=== PATIENT | female | born 1995 | race Caucasian/White ===

== ENCOUNTER 2018-08-09 15:37 | Emergency (ER) | payer OTHER ==
[2018-08-09 17:08] LABS: BILIRUBIN,URINE NEGATIVE (NEGATIVE); GLUCOSE, URINE (UA) NEGATIVE (NEGATIVE); KETONES,URINE (UA) NEGATIVE (NEGATIVE); LEUKOCYTE ESTERASE, URINE NEGATIVE (NEGATIVE); NITRITE,URINE NEGATIVE (NEGATIVE); OCCULT BLOOD,URINE NEGATIVE (NEGATIVE); PROTEIN,URINE NEGATIVE (NEGATIVE); UROBILINOGEN,URINE 0.2 (NORMAL) E.U./dL (NORMAL)
[2018-08-09 17:15] LABS: CLARITY,URINE CLEAR (CLEAR)
--- NOTE | 2018-08-09 17:40 | ED Physician Documentation ---
PD HPI ABD PAIN - Stated complaint Stated Complaint: 5 WKES PREG/ABD PX - Chief complaint Chief Complaint: Abd Pain - History obtained from History obtained from: Patient - History of Present Illness Timing - onset: Yesterday ( diagnosed with early a week ago today by 2 tests. with the first child due to decelerations. She has had intermittent right lower quadrant pain with soreness in between since yesterday, she is been nauseous and intermittently constipated.) Review of Systems Ten Systems: 10 systems reviewed and negative Constitutional: denies: Fever, Chills Cardiac: denies: Chest pain / pressure, Palpitations Respiratory: denies: Dyspnea, Cough PD PAST MEDICAL HISTORY - Present Medications Home Medications: Ambulatory Orders Medication Instructions Recorded Confirmed [id number]/FA/Omega3/Dha/Fish Oil 08/09/18 08/09/18 [ Gummies] - Allergies Allergies/Adverse Reactions: Allergies Allergy/AdvReac Type Severity Reaction Status Date / Time No Known Drug Allergies Allergy Verified 08/09/18 15:46 PD ED PE NORMAL - Vitals Vital signs reviewed: Yes - General General: Alert and oriented X 3, No acute distress - Neck Neck: Supple, no meningeal sign, No bony TTP - Cardiac Cardiac: RRR, No murmur - Respiratory Respiratory: No respiratory distress, Clear bilaterally - Abdomen Abdomen: Other (Minimal right lower quadrant tenderness without surgical signs) - Back Back: No CVA TTP, No spinal TTP - Derm Derm: Normal color, Warm and dry - Extremities Extremities: No edema, No calf tenderness / cord - Neuro Neuro: Alert and oriented X 3, Normal speech Results - Vitals Vitals: Vital Signs - 24 hr 08/09/18 08/09/18 15:44 19:19 Temperature 36.8 C Heart Rate 81 73 Respiratory 15 16 Rate Blood Pressure 110/64 109/61 O2 Saturation 98 100 Oxygen O2 Source Room air - Labs Labs: Laboratory Tests 08/09/18 08/09/18 08/09/18 16:55 17:45 17:45 WBC 9.2 RBC 4.77 Hgb 13.7 Hct 41.1 MCV 86.1 MCH 28.7 MCHC 33.3 RDW 15.2 H Plt Count 291 MPV 7.8 L Neut # (Auto) 6.2 Lymph # (Auto) 2.1 [place] # (Auto) 0.7 Eos # (Auto) 0.1 Baso # (Auto) 0.1 Absolute Nucleated RBC 0.00 Nucleated RBC % 0.0 Sodium 137 Potassium 3.5 Chloride 103 Carbon Dioxide 24 Anion Gap 10.0 BUN 14 Creatinine 0.7 Estimated GFR (MDRD) 104 Glucose 66 L Calcium 9.4 Total Bilirubin 0.6 AST 19 ALT 13 Alkaline Phosphatase 76 Total Protein 8.1 Albumin 4.4 Globulin 3.7 Albumin/Globulin Ratio 1.2 Lipase 48 HCG, Quant Urine Color YELLOW Urine Clarity CLEAR Urine pH 6.0 Ur Specific [place] 1.015 Urine Protein NEGATIVE Urine Glucose (UA) NEGATIVE Urine Ketones NEGATIVE Urine Occult Blood NEGATIVE Urine Nitrite NEGATIVE Urine Bilirubin NEGATIVE Urine Urobilinogen 0.2 (NORMAL) Ur Leukocyte Esterase NEGATIVE Ur Microscopic Review NOT INDICATED Urine Culture Comments NOT INDICATED Urine HCG, Qual POSITIVE 08/09/18 Unknown WBC RBC Hgb Hct MCV MCH MCHC RDW Plt Count MPV Neut # (Auto) Lymph # (Auto) [place] # (Auto) Eos # (Auto) Baso # (Auto) Absolute Nucleated RBC Nucleated RBC % Sodium Potassium Chloride Carbon Dioxide Anion Gap BUN Creatinine Estimated GFR (MDRD) Glucose Calcium Total Bilirubin AST ALT Alkaline Phosphatase Total Protein Albumin Globulin Albumin/Globulin Ratio Lipase HCG, Quant 3653.00 Urine Color Urine Clarity Urine pH Ur Specific [place] Urine Protein Urine Glucose (UA) Urine Ketones Urine Occult Blood Urine Nitrite Urine Bilirubin Urine Urobilinogen Ur Leukocyte Esterase Ur Microscopic Review Urine Culture Comments Urine HCG, Qual - Rads (name of study) Ob sono Radiology: Prelim report reviewed (4-week IUP without concerning findings for age and no evidence of ectopic) PD MEDICAL DECISION MAKING - ED course ED course: Note made that triage test was negative, She actually has copies of the labs from last Sunday and had a quantitative hCG of 350 7 days ago. However the laborer pipeline called me shortly thereafter and admitted that she had mis- keyed the test as negative and it was actually positive. Her beta-hCG was much higher today and sono was without evidence of acute pathology given her dates. She was given both ectopic and appendicitis precautions but this seems unlikely at this juncture. On reexamination prior to discharge she was nontender Departure - Departure Disposition: 01 Home, Self Care Clinical Impression: Abdominal pain, Condition: Good Record reviewed to determine appropriate education?: Yes Instructions: ED Abdominal Pain Appendx Poss Comments: Tylenol as needed for pain. Come back if pain is worse or more constant or if you develop other symptoms such as dizziness, passing out, fevers or bleeding. Follow-up with your central supply nurse next week, as discussed you should discuss a follow-up ultrasound in a week. Discharge Date/Time: 08/09/18 20:27
[2018-08-09 17:50] LABS: BASOPHILS # (AUTO) 0.1 10^3/uL (0.0-0.1); BASOPHILS % (AUTO) 0.9 %; EOSINOPHILS # (AUTO) 0.1 10^3/uL (0.0-0.7); EOSINOPHILS % (AUTO) 1.5 %; HGB - HEMOGLOBIN 13.7 g/dL (12.0-16.0); LYMPHOCYTES # (AUTO) 2.1 10^3/uL (1.5-3.5); MEAN CORPUSCULAR HEMOGLOBIN 28.7 pg (27.0-31.0); MEAN CORPUSCULAR HGB CONC 33.3 g/dL (32.0-36.0); MEAN CORPUSCULAR VOLUME 86.1 fL (81.0-99.0); MEAN PLATELET VOLUME 7.8 fL (7.9-10.8); MONOCYTES # (AUTO) 0.7 10^3/uL (0.0-1.0); MONOCYTES % (AUTO) 7.1 %; NEUTROPHILS # (AUTO) 6.2 10^3/uL (1.5-6.6); NEUTROPHILS % (AUTO) 67.5 %; PLT - PLATELET COUNT 291 10^3/uL (130-450); RED BLOOD COUNT 4.77 10^6/uL (4.20-5.40); RED CELL DISTRIBUTION WIDTH 15.2 % (12.0-15.0); WHITE BLOOD COUNT 9.2 x10^3/uL (4.8-10.8)
[2018-08-09 17:50] LABS: HCG UR QUAL POSITIVE
[2018-08-09 18:08] LABS: ALBUMIN 4.4 g/dL (3.2-5.5); ALBUMIN/GLOBULIN RATIO 1.2 (1.0-2.2); BILIRUBIN,TOTAL 0.6 mg/dL (0.2-1.0); CALCIUM 9.4 mg/dL (8.5-10.3); CREATININE 0.7 mg/dL (0.4-1.0); TOTAL PROTEIN 8.1 g/dL (6.7-8.2)
[2018-08-09 19:20] VITALS: BP 109/61
--- NOTE | 2018-08-09 20:00 | Ultrasound Report ---
Reason: Pelvic pain, Procedure Date: 08/09/2018 Accession Number: [id number] / [id number] Procedure: US - OB First Trimester CPT Code: FULL RESULT: EXAM: FIRST TRIMESTER OBSTETRIC ULTRASOUND (Less than 11 weeks) EXAM DATE: 08/09/2018 07:03 PM. CLINICAL HISTORY: Pelvic pain, . Right lower quadrant pain. LMP: 07/01/2018, EGA 5 weeks 3 days, RENETTA 04/07/2019. COMPARISONS: None. TECHNIQUE: Transabdominal and transvaginal ultrasound examination with static image documentation. CLINICAL DATES: EGA weeks/days with RENETTA based on LMP/prior ultrasound/other. ASSESSMENT: Gestational Sac: Probable single intrauterine gestational sac with a normal shape. Mean gestational sac diameter: 4.7 mm = 4 weeks 2 days. No embryo or yolk sac is seen. Amniotic fluid: Not accurately assessed at this gestational age. Early placenta: Not visible at this gestational age. Other: No perigestational fluid collection demonstrated. MATERNAL STRUCTURES: Uterus: Anteverted. Unremarkable. Cervix: Closed. Right Ovary/Adnexa: The ovary measures 4 x 2 x 1.8 cm. Unremarkable. Corpus luteum in the right ovary. Left Ovary/Adnexa: The ovary measures 2.8 x 1.6 x 1.8 cm. Unremarkable. Free Fluid: None. IMPRESSION: 1. Probable single intrauterine . Probable single intrauterine gestational sac with a EGA of 4 weeks 2 days. No embryo or yolk sac seen yet. In 1 week follow-up ultrasound could reevaluate. No evidence for an ectopic . An ectopic is not completely excluded. Correlate with beta hCGs. 2. No acute findings are seen. RADIA
== END 2018-08-09 20:27 | disposition home or self-care (01) ==
LOC: ED 15:37
DX: O99.89 Other specified diseases and conditions complicating pregnancy, childbirth and the puerperium (principal); R10.31 Right lower quadrant pain; Z3A.01 Less than 8 weeks gestation of pregnancy
CPT/HCPCS: 36415; 76801; 76817; 80053; 81001; 81003; 81025; 83690; 84702; 85025; 87086; 99283

== ENCOUNTER 2019-03-17 22:29 | Emergency (ER) | payer OTHER ==
[2019-03-17 22:36] VITALS: BP 147/70
[2019-03-17] MEDS ORDERED: ACETAMINOPHEN 325 MG TABLET PO STA (22:47)
--- NOTE | 2019-03-17 22:50 | ED Physician Documentation ---
History of Present Illness - Stated complaint Stated Complaint: CHEST PX/37 WKS - Chief complaint Chief Complaint: Cardiac - History obtained from History obtained from: Patient, Family - History of Present Illness Timing: How many hours ago (2) Pain level max: 6 Pain level now: 5 Improved by: nothing Worsened by: nothing - Additonal information Additional information: epigastric pain x 2 hours. states radiates to her back. no fever. no vomiting. some nausea. 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 Sees OB at [facility]. . 37 weeks EGA. no diarrhea or constipation. States lost her mucous plug yesterday. States is having mild contractions. no leakage of fluid. Review of Systems Constitutional: denies: Fever, Chills Throat: denies: Sore throat Cardiac: denies: Calf pain Respiratory: denies: Dyspnea, Cough, Hemoptysis, Wheezing GI: denies: Vomiting : denies: Dysuria, Frequency Skin: denies: Rash Neurologic: denies: Headache PD PAST MEDICAL HISTORY - Past Medical History Past Medical History: No Cardiovascular: None Respiratory: None Neuro: None Endocrine/Autoimmune: None GI: None TELECOMMUNICATIONS OFFICER: None : None HEENT: None Psych: None Musculoskeletal: None Derm: None - Past Surgical History Past Surgical History: Yes /TELECOMMUNICATIONS OFFICER: section - Present Medications Home Medications: Ambulatory Orders Medication Instructions Recorded Confirmed [id number]/FA/Omega3/Dha/Fish Oil 08/09/18 08/09/18 [ Gummies] - Allergies Allergies/Adverse Reactions: Allergies Allergy/AdvReac Type Severity Reaction Status Date / Time No Known Drug Allergies Allergy Verified 08/09/18 15:46 - Social History Does the pt smoke?: No Smoking Status: Never smoker Does the pt drink ETOH?: No Does the pt have substance abuse?: No - Immunizations Immunizations are current?: Yes - POLST Patient has POLST: No PD ED PE NORMAL - Vitals Vital signs reviewed: Yes - General General: Alert and oriented X 3, No acute distress, Well developed/nourished - HEENT HEENT: PERRL, Moist mucous membranes - Neck Neck: Supple, no meningeal sign - Cardiac Cardiac: RRR, Strong equal pulses - Respiratory Respiratory: No respiratory distress, Clear bilaterally - Abdomen Abdomen: Soft, Non distended, Other (mild TTP epigastric) - Back Back: No CVA TTP, No spinal TTP - Derm Derm: Warm and dry - Extremities Extremities: No edema, No calf tenderness / cord - Neuro Neuro: Alert and oriented X 3 - Psych Psych: Normal mood, Normal affect Results - Vitals Vitals: Vital Signs - 24 hr 03/17/19 22:30 Temperature 36.6 C Heart Rate 102 H Respiratory 18 Rate Blood Pressure 147/70 H O2 Saturation 98 Oxygen O2 Source Room air - EKG (time done) 2236 Rate: Rate (enter#) (92) Rhythm: NSR [place]: Normal Intervals: Normal AR QRS: Normal Ischemia: Normal ST segments - Labs Labs: Laboratory Tests 03/17/19 03/17/19 03/17/19 23:03 23:03 23:12 WBC 9.2 RBC 3.48 L Hgb 9.8 L Hct 29.9 L MCV 85.9 MCH 28.2 MCHC 32.8 RDW 13.2 Plt Count 233 MPV 9.5 Neut # (Auto) 6.8 H Lymph # (Auto) 1.5 [place] # (Auto) 0.8 Eos # (Auto) 0.1 Baso # (Auto) 0.0 Absolute Nucleated RBC 0.00 Nucleated RBC % 0.0 Sodium 138 Potassium 3.2 L Chloride 105 Carbon Dioxide 20 L Anion Gap 13.0 BUN 7 Creatinine 0.5 Estimated GFR (MDRD) 153 Glucose 88 Calcium 9.4 Total Bilirubin 0.6 AST 13 ALT < 10 L Alkaline Phosphatase 131 H Total Protein 6.6 L Albumin 3.0 L Globulin 3.6 Albumin/Globulin Ratio 0.8 L Lipase 31 Urine Color YELLOW Urine Clarity SL. CLOUDY Urine pH 6.5 Ur Specific [place] 1.015 Urine Protein NEGATIVE Urine Glucose (UA) NEGATIVE Urine Ketones 15 H Urine Occult Blood NEGATIVE Urine Nitrite NEGATIVE Urine Bilirubin NEGATIVE Urine Urobilinogen 0.2 (NORMAL) Ur Leukocyte Esterase TRACE H Urine RBC None Seen Urine WBC 0-3 Ur Squamous Epith Cells MOD Squamous H Amorphous Sediment Moderate Urine Bacteria Rare Ur Microscopic Review INDICATED Urine Culture Comments NOT INDICATED PD MEDICAL DECISION MAKING - ED course Complexity details: reviewed results, considered differential, d/w patient ED course: Called dye house helper at 2250 to come and have monitoring performed for possible labor in the ED. OB states they are unable to come to the ED for this. contected OB at 2300 D/w Dr. Lucio (OB) and accepts to OB in transfer, Patient will be transferred to OB for follow up on lab tests are monitoring. No evidence of ACS or PE. This document was made in part using voice recognition software. While efforts are made to proofread this document, sound alike and grammatical errors may occur. Departure - Departure Disposition: 01 Home, Self Care Clinical Impression: Abdominal pain Qualifiers: Abdominal location: epigastric Qualified Code(s): R10.13 - Epigastric pain Qualifiers: Weeks of gestation: 37 weeks Qualified Code(s): Z3A.37 - 37 weeks gestation of Condition: Stable Discharge Date/Time: 03/17/19 23:25
[2019-03-17] MEDS ORDERED: LIDOCAINE VISCOUS 2% 15 ML UDC MM STA (23:00)
[2019-03-17] MEDS ORDERED: MAG HYDROX/AL HYDROX/SIMETH 30 ML UDC PO STA (23:00)
[2019-03-17 23:11] LABS: BASOPHILS % (AUTO) 0.2 %; EOSINOPHILS # (AUTO) 0.1 10^3/uL (0.0-0.7); EOSINOPHILS % (AUTO) 0.8 %; HGB - HEMOGLOBIN 9.8 g/dL (12.0-16.0); LYMPHOCYTES # (AUTO) 1.5 10^3/uL (1.5-3.5); LYMPHOCYTES % (AUTO) 15.8 %; MEAN CORPUSCULAR HEMOGLOBIN 28.2 pg (27.0-31.0); MEAN CORPUSCULAR HGB CONC 32.8 g/dL (32.0-36.0); MEAN CORPUSCULAR VOLUME 85.9 fL (81.0-99.0); MEAN PLATELET VOLUME 9.5 fL (7.9-10.8); MONOCYTES # (AUTO) 0.8 10^3/uL (0.0-1.0); MONOCYTES % (AUTO) 9.1 %; NEUTROPHILS # (AUTO) 6.8 10^3/uL (1.5-6.6); NEUTROPHILS % (AUTO) 73.7 %; PLT - PLATELET COUNT 233 10^3/uL (130-450); RED BLOOD COUNT 3.48 10^6/uL (4.20-5.40); RED CELL DISTRIBUTION WIDTH 13.2 % (12.0-15.0); WHITE BLOOD COUNT 9.2 x10^3/uL (4.8-10.8)
[2019-03-17 23:20] LABS: BILIRUBIN,URINE NEGATIVE (NEGATIVE); GLUCOSE, URINE (UA) NEGATIVE (NEGATIVE); KETONES,URINE (UA) 15 mg/dL (NEGATIVE); LEUKOCYTE ESTERASE, URINE TRACE (NEGATIVE); NITRITE,URINE NEGATIVE (NEGATIVE); OCCULT BLOOD,URINE NEGATIVE (NEGATIVE); PH,URINE 6.5 PH (5.0-7.5); PROTEIN,URINE NEGATIVE (NEGATIVE); UROBILINOGEN,URINE 0.2 (NORMAL) E.U./dL (NORMAL)
[2019-03-17 23:24] LABS: ALBUMIN/GLOBULIN RATIO 0.8 (1.0-2.2); ALKALINE PHOSPHATASE 131 IU/L (42-121); ALT ALANINE AMINOTRANSFERASE < 10 IU/L (10-60); AST ASPARTATE AMINOTRANSFERASE 13 IU/L (10-42); BILIRUBIN,TOTAL 0.6 mg/dL (0.2-1.0); BUN - BLOOD UREA NITROGEN 7 mg/dL (6-20); CALCIUM 9.4 mg/dL (8.5-10.3); CARBON DIOXIDE - CO2 20 mmol/L (21-32); CHLORIDE 105 mmol/L (101-111); CREATININE 0.5 mg/dL (0.4-1.0); GFR - MDRD 153 (>89); GLUCOSE 88 mg/dL (70-100); LIPASE 31 U/L (22-51); SODIUM 138 mmol/L (135-145); TOTAL PROTEIN 6.6 g/dL (6.7-8.2)
[2019-03-17 23:32] LABS: CLARITY,URINE SL. CLOUDY (CLEAR)
[2019-03-17 23:37] LABS: AMORPHOUS SEDIMENT,UR Moderate /LPF; BACTERIA,URINE Rare /HPF (None Seen); RBC,URINE None Seen /HPF (0-5); SQUAMOUS EPITHELIAL CELL,UR MOD Squamous (<= Few)
== END 2019-03-17 23:25 | disposition home or self-care (01) ==
LOC: ED 22:29
DX: O99.89 Other specified diseases and conditions complicating pregnancy, childbirth and the puerperium (principal); R10.13 Epigastric pain; Z3A.37 37 weeks gestation of pregnancy
CPT/HCPCS: 36415; 80053; 81001; 83690; 85025; 93005; 99284; A9270; 81003; 87086

== ENCOUNTER 2019-03-17 23:19 | Outpatient (CLI) | payer OTHER ==
[2019-03-18 00:12] VITALS: BP 130/82
--- NOTE | 2019-03-18 01:06 | PROVIDER PROGRESS NOTE ---
- HPI Chief Complaint: GI symptoms Current : Current EDU 04/08/19 Gestation 37 Weeks and 0 Days 2 Para 1 Vital Signs Temperature 98.6 F 03/17/19 23:25 Heart Rate 93 03/17/19 23:25 Respiratory Rate 16 03/17/19 23:25 Blood Pressure 130/82 H 03/17/19 23:25 O2 Saturation 100 03/17/19 23:25 Temperature 98.6 F 03/17/19 23:25 Heart Rate 93 03/17/19 23:25 Respiratory Rate 16 03/17/19 23:25 Blood Pressure 130/82 H 03/17/19 23:25 O2 Saturation 100 03/17/19 23:25 Breanne s a 23 yo at 37w0d with a hx of prior cs here for evaluation of chest pain. She was seen in the ED earlier this evening and EKG was wnl and assessment for PE was negative. She was sent to OB triage for further assessment. Pain started about 4 hours prior to presentation. Rated 6/10 at rest, 8/10 with palpation. Nausea no vomiting. Only occ CTX. No VB or LOF. Endorses movement. Had supreme pizza for dinner. GI cocktail did not relieve pain. has been uncomplicated to date. - Exam GEN: NAD RESP: nl effort CV: RRR ABD: palpable mass in the epigastric area, substernal. Above uterine fundus. Pressure causes mass to recede with increase in report of pain. Pain radiates behind right breast to flank. No guarding. Uterine fundus firm and non-tender EXT: WWP minimal LE edema NEURO: A&O LFTs wnl - Procedures OB Procedure Performed: NST Diagnosis/Indication for NST: Other NST Procedure: NST Procedure Start Date 03/17/19 Start Time 23:23 Stop Time 00:01 Vibroacoustic Stimulation Used No Patient States Movement Yes EFM 115 md dev 15x15 accels no decels TOCO: rare Cat I tracing Service Date of procedure: 03/18/19 Findings: RUQ US pending. Initial assessment shows normal gallbladder, liver, pancreas. Awaiting final read. CAT I NST - Plan Plan: Ruled out acute cardiac event and PE RUQ US unrevealing Pain above uterus Reviewed signs and symptoms of preeclampsaia. At present, BPs are wnl and LFTS were normal TUMS/Zantac given for heart burn Warning signs reviewed A total of 60 min was spent in patient, with > 50% in face to face dianetic counselor.
[2019-03-18] MEDS: CALCIUM CARBONATE CHEW 500 MG TABLET PO ONE (01:11)
--- NOTE | 2019-03-18 01:21 | Ultrasound Report ---
Reason: epigrastic and abdominal pain, palpable mass Procedure Date: 03/18/2019 Accession Number: [id number] / [id number] Procedure: US - Abdomen Limited CPT Code: FULL RESULT: EXAM: ABDOMEN ULTRASOUND LIMITED, RUQ EXAM DATE: 03/18/2019 12:23 AM. CLINICAL HISTORY: Epigastric and abdominal pain, palpable mass. Patient is . COMPARISON: None. TECHNIQUE: Real-time scanning was performed with static images obtained. FINDINGS: Liver: Normal in size and echotexture. Liver measures 17.5 cm. Main portal vein flow: Hepatopetal. Gallbladder: Normal. No stones, wall thickening, or sonographic Govea's sign. Gallbladder wall measures 2.1 mm. Biliary System: CBD measures 3.5 mm. No intrahepatic or extrahepatic ductal dilatation. Other: Pancreas not well visualized due to shadowing from overlying bowel gas. Right kidney measures 10.1 cm in length. No right-sided hydronephrosis. Gravid uterus. IMPRESSION: 1. Pancreas not well visualized. Right upper quadrant ultrasound otherwise within normal limits. Unremarkable gallbladder and CBD. 2. Gravid uterus noted. Dedicated ultrasound can further assess if clinically indicated. RADIA
== END 2019-03-18 01:40 | disposition home or self-care (01) ==
LOC: WFO 23:19 → FBP 23:27 → WFO 03-18 01:40
PROVIDERS: ATTEND Obstetrics & Gynecology
DX: O99.89 Other specified diseases and conditions complicating pregnancy, childbirth and the puerperium (principal); R12 Heartburn; Z3A.37 37 weeks gestation of pregnancy
CPT/HCPCS: 59025; 76705; A9270; 99214

== ENCOUNTER 2019-07-25 18:00 | Emergency (ER) | payer OTHER ==
--- NOTE | 2019-07-25 18:44 | ED Physician Documentation ---
PD HPI ABD PAIN - Stated complaint Stated Complaint: LOWER ABD PAIN - 3MO POST - Chief complaint Chief Complaint: Abd Pain - History obtained from History obtained from: Patient (She is about 4 months , she had a C- section because she had had a prior . No other complications. For the last week she has had pelvic pain and right lower quadrant pain with watery vaginal discharge. No fevers or chills. No nausea. Declines pain medication on initial evaluation.) Review of Systems Constitutional: reports: Reviewed and negative Throat: reports: Reviewed and negative Cardiac: reports: Reviewed and negative Respiratory: reports: Reviewed and negative PD PAST MEDICAL HISTORY - Past Medical History Cardiovascular: None Respiratory: None Neuro: None Endocrine/Autoimmune: None GI: None FLOOR FINISHER: None : None HEENT: None Psych: None Musculoskeletal: None Derm: None - Past Surgical History Past Surgical History: Yes /FLOOR FINISHER: section - Present Medications Home Medications: Ambulatory Orders Medication Instructions Recorded Confirmed Pnv No.103/Folic/Om3s/Fish Oil 08/09/18 08/09/18 [ Gummies] - Allergies Allergies/Adverse Reactions: Allergies Allergy/AdvReac Type Severity Reaction Status Date / Time No Known Drug Allergies Allergy Verified 07/25/19 18:07 - Social History Does the pt smoke?: No Smoking Status: Never smoker Does the pt drink ETOH?: No Does the pt have substance abuse?: No - Immunizations Immunizations are current?: Yes - POLST Patient has POLST: No PD ED PE NORMAL - Vitals Vital signs reviewed: Yes - General General: Alert and oriented X 3, No acute distress - Respiratory Respiratory: No respiratory distress, Clear bilaterally - Abdomen Abdomen: Normal bowel sounds, Soft, Other (MILD rlq ttP AND PELVIC TTP) - Back Back: No CVA TTP, No spinal TTP - Derm Derm: Normal color, Warm and dry - Neuro Neuro: Alert and oriented X 3, Normal speech Results - Vitals Vitals: Vital Signs - 24 hr 07/25/19 18:07 Temperature 36.7 C Heart Rate 79 Respiratory 14 Rate Blood Pressure 131/82 H O2 Saturation 100 Oxygen O2 Source Room air - Labs Labs: Laboratory Tests 07/25/19 07/25/19 07/25/19 18:46 18:46 20:22 WBC 7.6 RBC 4.69 Hgb 13.9 Hct 42.0 MCV 89.6 MCH 29.6 MCHC 33.1 RDW 12.9 Plt Count 258 MPV 9.5 Neut # (Auto) 4.4 Lymph # (Auto) 2.4 [place] # (Auto) 0.7 Eos # (Auto) 0.1 Baso # (Auto) 0.0 Absolute Nucleated RBC 0.00 Nucleated RBC % 0.0 Sodium 139 Potassium 3.9 Chloride 103 Carbon Dioxide 26 Anion Gap 10.0 BUN 17 Creatinine 0.8 Estimated GFR (MDRD) 89 Glucose 89 Calcium 9.8 Total Bilirubin 0.6 AST 17 ALT 14 Alkaline Phosphatase 101 Total Protein 8.2 Albumin 4.7 Globulin 3.5 Albumin/Globulin Ratio 1.3 Lipase 43 Urine Color YELLOW Urine Clarity CLEAR Urine pH 6.5 Ur Specific [place] <=1.005 Urine Protein NEGATIVE Urine Glucose (UA) NEGATIVE Urine Ketones 15 H Urine Occult Blood NEGATIVE Urine Nitrite NEGATIVE Urine Bilirubin NEGATIVE Urine Urobilinogen 0.2 (NORMAL) Ur Leukocyte Esterase NEGATIVE Ur Microscopic Review NOT INDICATED Urine Culture Comments NOT INDICATED Urine HCG, Qual NEGATIVE PD MEDICAL DECISION MAKING - ED course ED course: This is a young woman with pelvic pain, 4 months after a . Work-up demonstrates a small left ovarian cyst, otherwise negative labs and negative test. Departure - Departure Disposition: 01 Home, Self Care Clinical Impression: Ovarian cyst Qualifiers: Laterality: left Qualified Code(s): N83.202 - Unspecified ovarian cyst, left side Condition: Good Record reviewed to determine appropriate education?: Yes Instructions: ED Pelvic Pain [facility] Comments: [place]. Return for new or worsening symptoms. If pain is bad you can take ibuprofen as needed. If that is insufficient please return for reevaluation.
[2019-07-25 18:50] LABS: BASOPHILS % (AUTO) 0.5 %; EOSINOPHILS # (AUTO) 0.1 10^3/uL (0.0-0.7); EOSINOPHILS % (AUTO) 0.9 %; HGB - HEMOGLOBIN 13.9 g/dL (12.0-16.0); LYMPHOCYTES # (AUTO) 2.4 10^3/uL (1.5-3.5); LYMPHOCYTES % (AUTO) 31.5 %; MEAN CORPUSCULAR HEMOGLOBIN 29.6 pg (27.0-31.0); MEAN CORPUSCULAR HGB CONC 33.1 g/dL (32.0-36.0); MEAN CORPUSCULAR VOLUME 89.6 fL (81.0-99.0); MEAN PLATELET VOLUME 9.5 fL (7.9-10.8); MONOCYTES # (AUTO) 0.7 10^3/uL (0.0-1.0); MONOCYTES % (AUTO) 9.1 %; NEUTROPHILS # (AUTO) 4.4 10^3/uL (1.5-6.6); NEUTROPHILS % (AUTO) 57.7 %; PLT - PLATELET COUNT 258 10^3/uL (130-450); RED BLOOD COUNT 4.69 10^6/uL (4.20-5.40); RED CELL DISTRIBUTION WIDTH 12.9 % (12.0-15.0); WHITE BLOOD COUNT 7.6 x10^3/uL (4.8-10.8)
[2019-07-25 19:04] LABS: ALBUMIN 4.7 g/dL (3.2-5.5); ALBUMIN/GLOBULIN RATIO 1.3 (1.0-2.2); BILIRUBIN,TOTAL 0.6 mg/dL (0.2-1.0); CALCIUM 9.8 mg/dL (8.5-10.3); CREATININE 0.8 mg/dL (0.4-1.0); TOTAL PROTEIN 8.2 g/dL (6.7-8.2)
--- NOTE | 2019-07-25 20:20 | Ultrasound Report ---
Reason: pelvic pain, R Procedure Date: 07/25/2019 Accession Number: [id number] / [id number] Procedure: US - Pelvic w/Transvag+Doppler Comp CPT Code: Final Report FULL RESULT: EXAM: PELVIC ULTRASOUND WITH DOPPLERS CLINICAL HISTORY: Pelvic pain, Right. COMPARISON: None. TECHNIQUE: Realtime transabdominal imaging performed to identify the uterus and adnexa and as an overview of other pelvic structures, followed by transvaginal imaging for better assessment of the endometrium and adnexa, with static image documentation. Color flow imaging and Doppler spectral analysis was performed to evaluate blood flow to the ovaries given pelvic pain and clinical concern for ovarian torsion. FINDINGS: Uterus: 9.3 x 4.7 x 5.6 cm, volume 126.4 cc. Anteverted position. Normal overall size and echotexture. Masses: None. Endometrium: 11 mm. Normal. Cervix: Unremarkable. Right Ovary: 4 x 2.5 x 2.2 cm, volume 11.4 cc. Normal echotexture. Arterial and venous blood flow are present. PSV 11.5 cm/sec. RI 0.6. Adnexa are unremarkable. Left Ovary: 3.8 x 2.7 x 2.8 cm, volume 15 cc. Normal echotexture. Left ovarian dominant follicle with a few peripheral thin septations measuring 2.2 x 2.5 x 2.2 cm. Arterial and venous blood flow are present. PSV 7 cm/sec. RI 0.6. Adnexa are unremarkable. Free Fluid: Small simple free fluid seen in the posterior cul-de-sac. IMPRESSION: 1. Small simple free fluid seen in the posterior cul-de-sac. Left ovarian dominant follicle measuring 2.5 cm. No evidence for ovarian torsion. 2. Arterial and venous blood flow are present to the ovaries bilaterally. RADIA
[2019-07-25 20:35] LABS: BILIRUBIN,URINE NEGATIVE (NEGATIVE); GLUCOSE, URINE (UA) NEGATIVE (NEGATIVE); KETONES,URINE (UA) 15 mg/dL (NEGATIVE); LEUKOCYTE ESTERASE, URINE NEGATIVE (NEGATIVE); NITRITE,URINE NEGATIVE (NEGATIVE); OCCULT BLOOD,URINE NEGATIVE (NEGATIVE); PH,URINE 6.5 PH (5.0-7.5); PROTEIN,URINE NEGATIVE (NEGATIVE); UROBILINOGEN,URINE 0.2 (NORMAL) E.U./dL (NORMAL)
[2019-07-25 20:47] LABS: CLARITY,URINE CLEAR (CLEAR); HCG UR QUAL NEGATIVE
[2019-07-25 21:07] VITALS: BP 125/73
== END 2019-07-25 21:07 | disposition home or self-care (01) ==
LOC: ED 18:00
DX: N83.202 Unspecified ovarian cyst, left side (principal)
CPT/HCPCS: 36415; 76830; 76856; 80053; 81001; 81003; 81025; 83690; 85025; 87086; 93975; 99283; 99284

== ENCOUNTER 2020-07-04 13:06 | Emergency (ER) | payer OTHER ==
--- NOTE | 2020-07-04 13:35 | ED Physician Documentation ---
PD HPI ABD PAIN - Stated complaint Stated Complaint: RIGHT ABD PAIN - Chief complaint Chief Complaint: Abd Pain - History obtained from History obtained from: Patient - Additional information Additional information: 24-year-old woman has an ovarian cyst diagnosed middle of May. Pain defervesced but never completely went away. She did have an a follow-up ultrasound showing no residual cyst. Today the pain got much worse again and is associated with nausea. No fevers. No discharge. Review of Systems Ten Systems: 10 systems reviewed and negative Constitutional: denies: Fever, Chills GI: reports: Nausea. denies: Vomiting, Constipation, Diarrhea : denies: Dysuria, Frequency PD PAST MEDICAL HISTORY - Past Medical History Cardiovascular: None Respiratory: None Neuro: None Endocrine/Autoimmune: None GI: None THERAPEUTIC CASE MANAGER: None : None HEENT: None Psych: None Musculoskeletal: None Derm: None - Past Surgical History Past Surgical History: Yes /THERAPEUTIC CASE MANAGER: section - Present Medications Home Medications: Ambulatory Orders Medication Instructions Recorded Confirmed Pnv No.103/Folic/Om3s/Fish Oil 08/09/18 08/09/18 [ Gummies] Metoclopramide [Reglan] 10 mg PO Q6H PRN #20 tablet 07/04/20 Pnv No.121/Iron/Folic Acid 1 each PO DAILY #90 tablet 07/04/20 [ Multivitamin Tablet] - Allergies Allergies/Adverse Reactions: Allergies Allergy/AdvReac Type Severity Reaction Status Date / Time No Known Drug Allergies Allergy Verified 07/04/20 13:13 - Social History Does the pt smoke?: No Smoking Status: Never smoker Does the pt drink ETOH?: No Does the pt have substance abuse?: No - Immunizations Immunizations are current?: Yes - POLST Patient has POLST: No PD ED PE NORMAL - Vitals Vital signs reviewed: Yes - General General: Alert and oriented X 3, No acute distress - Neck Neck: Supple, no meningeal sign, No bony TTP - Cardiac Cardiac: RRR, No murmur - Respiratory Respiratory: No respiratory distress, Clear bilaterally - Abdomen Abdomen: Normal bowel sounds, Soft, Other (Mild R pelvic TTP, no surg signs) - Back Back: No CVA TTP - Derm Derm: Normal color, Warm and dry - Neuro Neuro: Alert and oriented X 3, Normal speech Results - Vitals Vitals: Vital Signs - 24 hr 07/04/20 07/04/20 13:07 14:46 Temperature 36.3 C L Heart Rate 82 95 Respiratory 15 18 Rate Blood Pressure 128/74 121/74 O2 Saturation 99 98 Oxygen O2 Source Room air - Labs Labs: Laboratory Tests 07/04/20 07/04/20 07/04/20 13:30 13:40 13:40 WBC 7.1 RBC 4.38 Hgb 12.8 Hct 39.0 MCV 89.0 MCH 29.2 MCHC 32.8 RDW 13.1 Plt Count 268 MPV 9.7 Neut # (Auto) 4.6 Lymph # (Auto) 1.8 [place] # (Auto) 0.6 Eos # (Auto) 0.1 Baso # (Auto) 0.0 Absolute Nucleated RBC 0.00 Nucleated RBC % 0.0 Sodium 138 Potassium 3.9 Chloride 104 Carbon Dioxide 24 Anion Gap 10.0 BUN 13 Creatinine 0.7 Estimated GFR (MDRD) 103 Glucose 87 Calcium 9.4 Total Bilirubin 0.7 AST 14 ALT 13 Alkaline Phosphatase 67 Total Protein 7.7 Albumin 4.3 Globulin 3.4 Albumin/Globulin Ratio 1.3 Lipase 47 HCG, Quant 3216.00 Urine Color Urine Clarity Urine pH Ur Specific Moodus Urine Protein Urine Glucose (UA) Urine Ketones Urine Occult Blood Urine Nitrite Urine Bilirubin Urine Urobilinogen Ur Leukocyte Esterase Ur Microscopic Review Urine Culture Comments Urine HCG, Qual 07/04/20 13:45 WBC RBC Hgb Hct MCV MCH MCHC RDW Plt Count MPV Neut # (Auto) Lymph # (Auto) [place] # (Auto) Eos # (Auto) Baso # (Auto) Absolute Nucleated RBC Nucleated RBC % Sodium Potassium Chloride Carbon Dioxide Anion Gap BUN Creatinine Estimated GFR (MDRD) Glucose Calcium Total Bilirubin AST ALT Alkaline Phosphatase Total Protein Albumin Globulin Albumin/Globulin Ratio Lipase HCG, Quant Urine Color LIGHT YELLOW Urine Clarity CLEAR Urine pH 7.0 Ur Specific Moodus 1.015 Urine Protein NEGATIVE Urine Glucose (UA) NEGATIVE Urine Ketones NEGATIVE Urine Occult Blood NEGATIVE Urine Nitrite NEGATIVE Urine Bilirubin NEGATIVE Urine Urobilinogen 0.2 (NORMAL) Ur Leukocyte Esterase NEGATIVE Ur Microscopic Review NOT INDICATED Urine Culture Comments NOT INDICATED Urine HCG, Qual POSITIVE - Rads (name of study) OB Sono Radiology: EMP read contemporaneously PD MEDICAL DECISION MAKING - ED course ED course: 24-year-old G2 now G3 presents with lower abdominal pain in , fairly benign exam. White count is normal making appendicitis unlikely. She did not know she was , her urine test was positive and followed with a serum hCG and ultrasound which confirmed intrauterine . Departure - Departure Disposition: 01 Home, Self Care Clinical Impression: Abdominal pain Qualifiers: Abdominal location: right lower quadrant Qualified Code(s): R10.31 - Right lower quadrant pain Qualifiers: Weeks of gestation: less than 8 weeks Qualified Code(s): Z3A.01 - Less than 8 weeks gestation of Condition: Good Record reviewed to determine appropriate education?: Yes Instructions: ED Preg Established Normal Sxs Follow-Up: [facility] [Provider Group] Prescriptions: Pnv No.121/Iron/Folic Acid [ Multivitamin Tablet] 1 each PO DAILY #90 tablet Metoclopramide [Reglan] 10 mg PO Q6H PRN #20 tablet PRN Reason: nausea or headache Comments: Ultrasound demonstrates single live intrauterine at 5 weeks and 1 day, this corresponds to an estimated date of delivery of March 11, 2021. If symptoms worsen or change please return for reevaluation.
[2020-07-04 13:50] LABS: BASOPHILS % (AUTO) 0.6 %; EOSINOPHILS # (AUTO) 0.1 10^3/uL (0.0-0.7); HGB - HEMOGLOBIN 12.8 g/dL (12.0-16.0); LYMPHOCYTES # (AUTO) 1.8 10^3/uL (1.5-3.5); LYMPHOCYTES % (AUTO) 24.6 %; MEAN CORPUSCULAR HEMOGLOBIN 29.2 pg (27.0-31.0); MEAN CORPUSCULAR HGB CONC 32.8 g/dL (32.0-36.0); MEAN PLATELET VOLUME 9.7 fL (7.9-10.8); MONOCYTES # (AUTO) 0.6 10^3/uL (0.0-1.0); MONOCYTES % (AUTO) 8.5 %; NEUTROPHILS # (AUTO) 4.6 10^3/uL (1.5-6.6); NEUTROPHILS % (AUTO) 64.9 %; PLT - PLATELET COUNT 268 10^3/uL (130-450); RED BLOOD COUNT 4.38 10^6/uL (4.20-5.40); RED CELL DISTRIBUTION WIDTH 13.1 % (12.0-15.0); WHITE BLOOD COUNT 7.1 x10^3/uL (4.8-10.8)
[2020-07-04 14:00] LABS: BILIRUBIN,URINE NEGATIVE (NEGATIVE); GLUCOSE, URINE (UA) NEGATIVE (NEGATIVE); KETONES,URINE (UA) NEGATIVE (NEGATIVE); LEUKOCYTE ESTERASE, URINE NEGATIVE (NEGATIVE); NITRITE,URINE NEGATIVE (NEGATIVE); OCCULT BLOOD,URINE NEGATIVE (NEGATIVE); PROTEIN,URINE NEGATIVE (NEGATIVE); UROBILINOGEN,URINE 0.2 (NORMAL) E.U./dL (NORMAL)
[2020-07-04 14:02] LABS: CLARITY,URINE CLEAR (CLEAR); HCG UR QUAL POSITIVE
[2020-07-04 14:04] LABS: ALBUMIN 4.3 g/dL (3.2-5.5); ALBUMIN/GLOBULIN RATIO 1.3 (1.0-2.2); BILIRUBIN,TOTAL 0.7 mg/dL (0.2-1.0); CALCIUM 9.4 mg/dL (8.5-10.3); CREATININE 0.7 mg/dL (0.4-1.0); TOTAL PROTEIN 7.7 g/dL (6.7-8.2)
[2020-07-04] MEDS ORDERED: HYDROmorphone 1 MG/ML CARPUJECT IVP STA (14:15)
[2020-07-04] MEDS ORDERED: METOCLOPRAMIDE 10 MG/2 ML VIAL IVP STA (14:15)
--- NOTE | 2020-07-04 15:09 | Ultrasound Report ---
Endovaginal imaging was performed with OB ultrasound, reported separately. Reviewed by: Andrea Herrera MD on 07/04/2020 2:08 PM [place] Approved by: Andrea Herrera MD on 07/04/2020 2:08 PM [facility] Station ID: [id number]
--- NOTE | 2020-07-04 15:09 | Ultrasound Report ---
PROCEDURE: OB First Trimester INDICATIONS: R pelvic pain, preg OUTSIDE/PRIOR DATING DATA: Last menstrual period (LMP): 1016. LMP-based estimated date of delivery (RENETTA): 03.11.21. TECHNIQUE: Real-time scanning was performed of the fetus and maternal pelvic organs, with image documentation. COMPARISON: None FINDINGS: Embryo: There is an intrauterine anechoic sac consistent with an intrauterine gestational sac measur ing 4 mm diameter, corresponding to a 5 week 1 day gestation. Measurement variability in dating: +/- 4 weeks by LMP, +/- 7 days by mean sac diameter (use before 6 weeks gestation if crown-rump length not able to be measured), +/- 5 days by crown-rump length (6-12 weeks gestation). Maternal organs: Ovaries within normal limits. Limited images through the kidneys demonstrate no hy dronephrosis. Small amount of free fluid within the pelvis. IMPRESSION: 1. Findings consistent with an early intrauterine gestation. Routine clinical and sonographic follow- up recommended to document viability. 2. Small amount of free fluid within the pelvis. Reviewed by: Andrea Herrera MD on 07/04/2020 2:08 PM [facility] Approved by: Andrea Herrera MD on 07/04/2020 2:08 PM [facility] Station ID: [id number]
[2020-07-04 15:34] VITALS: BP 112/67
== END 2020-07-04 15:33 | disposition home or self-care (01) ==
LOC: ED 13:06
DX: O26.899 Other specified pregnancy related conditions, unspecified trimester (principal); R10.2 Pelvic and perineal pain; Z3A.01 Less than 8 weeks gestation of pregnancy
CPT/HCPCS: 36415; 76801; 76817; 80053; 81003; 81025; 83690; 84702; 85025; 96374; 99284; 99285; J1170; J2765; 81001; 87086

== ENCOUNTER 2020-10-23 15:20 | Emergency (ER) | payer OTHER ==
--- NOTE | 2020-10-23 15:29 | ED Physician Documentation ---
PD HPI FEVER - Stated complaint Stated Complaint: POSS C+ - History obtained from History obtained from: Patient - Additional information Additional information: Her is active duty in the [employer] and was diagnosed with Covid today. She has mild nausea and a headache. She has 20-week without contractions or fluid loss. Review of Systems Constitutional: denies: Fever, Chills Nose: denies: Rhinorrhea / runny nose Cardiac: denies: Chest pain / pressure Respiratory: denies: Dyspnea, Cough PD PAST MEDICAL HISTORY - Past Medical History Cardiovascular: None Respiratory: None Neuro: None Endocrine/Autoimmune: None GI: None FOREST PATHOLOGY TEACHER: None : None HEENT: None Psych: None Musculoskeletal: None Derm: None - Past Surgical History Past Surgical History: Yes /FOREST PATHOLOGY TEACHER: section - Present Medications Home Medications: Ambulatory Orders Medication Instructions Recorded Confirmed Pnv No.103/Folic/Om3s/Fish Oil 08/09/18 08/09/18 [ Gummies] Metoclopramide [Reglan] 10 mg PO Q6H PRN #20 tablet 07/04/20 Pnv No.121/Iron/Folic Acid 1 each PO DAILY #90 tablet 07/04/20 [ Multivitamin Tablet] - Allergies Allergies/Adverse Reactions: Allergies Allergy/AdvReac Type Severity Reaction Status Date / Time No Known Drug Allergies Allergy Verified 07/04/20 13:13 - Social History Does the pt smoke?: No Smoking Status: Never smoker Does the pt drink ETOH?: No Does the pt have substance abuse?: No - Immunizations Immunizations are current?: Yes - POLST Patient has POLST: No PD ED PE NORMAL - Vitals Vital signs reviewed: Yes - General General: Alert and oriented X 3, No acute distress - Neck Neck: Supple, no meningeal sign - Derm Derm: No rash - Psych Psych: Normal mood, Normal affect Results - Vitals Vitals: Oxygen O2 Source Room air Departure - Departure Disposition: 01 Home, Self Care Clinical Impression: Exposure to COVID-19 virus Condition: Good Record reviewed to determine appropriate education?: Yes Instructions: ED Viral Syndrome Comments: You must strictly home quarantine for now. Isolation and precautions can be discontinued 10 days after symptom onset* and after resolution of fever for at least 24 hours, without the use of fever-reducing medications, and with improvement of other symptoms. You have a Covid test pending. You need to self quarantine until the result is done and negative. Do not leave your house. Do not get near anybody. The results should be done in 48 to 72 hours. We will call with a positive result, the fastest way to get a negative result for confirmation though is to go to the hospital website at [email or web address], click on the my [facility] tab and sign up for the patient portal. If any friends or family get sick and would like to have a Covid test done, but do not have signs or symptoms that would necessitate being hospitalized, we encourage testing through our coronavirus swabbing station, call [phone] to schedule an appointment. Forms: Activity restrictions
[2020-10-23 15:52] VITALS: BP 117/71
== END 2020-10-23 15:50 | disposition home or self-care (01) ==
LOC: ED 15:20
DX: O26.892 Other specified pregnancy related conditions, second trimester (principal); R51.9 Headache, unspecified; R11.0 Nausea; Z20.822 Contact with and (suspected) exposure to COVID-19; Z3A.20 20 weeks gestation of pregnancy
CPT/HCPCS: 99281; 99283

== ENCOUNTER 2020-12-11 12:05 | Outpatient (CLI) | payer OTHER ==
[2020-12-11 13:00] LABS: BILIRUBIN,URINE NEGATIVE (NEGATIVE); GLUCOSE, URINE (UA) NEGATIVE (NEGATIVE); KETONES,URINE (UA) NEGATIVE (NEGATIVE); LEUKOCYTE ESTERASE, URINE NEGATIVE (NEGATIVE); NITRITE,URINE NEGATIVE (NEGATIVE); OCCULT BLOOD,URINE NEGATIVE (NEGATIVE); PROTEIN,URINE NEGATIVE (NEGATIVE); UROBILINOGEN,URINE 0.2 (NORMAL) E.U./dL (NORMAL)
[2020-12-11 13:01] LABS: CLARITY,URINE CLEAR (CLEAR)
[2020-12-11 13:09] LABS: BACTERIA,URINE None Seen /HPF (None Seen); RBC,URINE 0-5 /HPF (0-5); SQUAMOUS EPITHELIAL CELL,UR FEW Squamous (<= Few); WBC,URINE 0-3 /HPF (0-5)
--- NOTE | 2020-12-11 15:03 | Ultrasound Report ---
PROCEDURE: OB Limited INDICATIONS: Rule out abruption OUTSIDE/PRIOR DATING DATA: Last menstrual period (LMP): 06/04/2020. LMP-based estimated date of delivery (RENETTA): 03/11/2021. First dating scan (date and location): 07/04/2020,[facility], at which time there was simply a gestational s ac. It is noted that the physician states the RENETTA is 03/10/2021. However, by a report from [facility] , estimated delivery date is 03/07/2021 TECHNIQUE: Real-time scanning was performed of the fetus, with image documentation. Endovaginal scanning: Not performed COMPARISON: None. FINDINGS: A single living intrauterine gestation is present. Presentation: Breech Placenta: Placental position is anterior, without previa. Amniotic fluid index: 15.1 cm, within normal limits for gestational age. Largest pocket is 5.6 cm. heart rate: 128 beats per minutes. Maternal cervical canal: 4.8 cm long; normal length is 2.5 cm or more. Estimated gestational age from initial scan: 27 weeks 2 days (if the estimated delivery date is 2020). IMPRESSION: 1. Living intrauterine at the beginning of the third trimester 2. Unremarkable placenta with no evidence of abruption or previa. Reviewed by: Anastacio Murray MD on 12/11/2020 3:02 PM PDT Approved by: Anastacio Murray MD on 12/11/2020 3:02 PM PDT Station ID: [id number]
[2020-12-11 17:29] LABS: BACTERIAL VAGINOSIS DNA NEGATIVE (NEGATIVE); CANDIDA GLABRATA DNA NEGATIVE (NEGATIVE); CANDIDA GROUP DNA NEGATIVE (NEGATIVE); CANDIDA KRUSEI DNA NEGATIVE (NEGATIVE); TRICHOMONAS VAGINALIS DNA NEGATIVE (NEGATIVE)
--- NOTE | 2020-12-11 18:10 | PREOP HISTORY & PHYSICAL ---
DATE OF SERVICE: 12/11/2020 Physician: Zeke Motley MD IDENTIFICATION: The patient is a 25-year-old. She is G3, P2 with an EDC of 03/10/2021. CHIEF COMPLAINT: Lower pelvic pain. HISTORY OF PRESENT ILLNESS: The patient has had problems with pelvic pain early on in her , particularly vaginal pain. She was seen by pelvic floor PT, which helped significantly. She states that she developed pelvic pain in the last day. This got progressively worse and became sharp today and she presents today for evaluation. She denies any bleeding or fluid leak. She voices no other complaints at this time. She notes good motion. She is currently a patient of [facility] and came over here because of convenience. Of historical note is that she has had 2 previous sections, the first one she relates to being done at 36 weeks for bad contractions. This was done for intolerance at [facility]. The second section was done repeat. Her laboratories show her to be A+, negative for syphilis, Trichomonas or Chlamydia. Her hepatitis B, hepatitis C, and HIV were all negative. Neisseria gonorrhea was also negative. She is immune to both rubella as well as chickenpox. Her 50 gram Glucola was 127. Her type and Rh are not listed in the data that I have been supplied. PAST MEDICAL HISTORY: Positive for an abnormal Pap in the past, 2018. She also has a history of anemia as well as some depression. PAST SURGICAL HISTORY: Positive for section x2 as well as wisdom teeth removal. ALLERGIES: NONE KNOWN. CURRENT MEDICATIONS: vitamins. 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 REVIEW OF SYSTEMS: Negative otherwise. PHYSICAL EXAMINATION GENERAL: Well-developed, well-nourished, white female in no acute distress at this time. HEENT: Pupils equal and round. Extraocular muscles intact. NECK: Thyroid is not palpably enlarged. HEART: Regular rate and rhythm without murmurs. CHEST: Lung cotto are clear without rales or wheezes. BACK: No spinal or CVA tenderness noted. Paraspinal muscles were very tender duplicating the pain she was C/O. ABDOMEN: Nontender, 29 cm fundal height. There is no rebound or tenderness at this time. PELVIC: Reveals a cervix which is very posterior, long, and closed. She had a transvaginal ultrasound, which showed her cervix to be 4.8 cm in length. An fFN as well as bacterial vaginosis cultures were taken at that time. Ultrasound final report is pending at this time. The KRISTY however, was noted to be 15 and good motion was detected. The placenta appeared to be anterior without evidence of any fluid leaks or abruptions. IMPRESSION: A 25-year-old G3, P2 female at 29 weeks EGA. Ultrasound is negative, fFN negative. Acute back strain. Pt is to follow with own Supervisor Steffen House TD: 12/11/2020 18:09 JENNI
== END 2020-12-11 14:15 | disposition home or self-care (01) ==
LOC: WFO 12:05 → FBP 12:08 → WFO 14:15
PROVIDERS: ATTEND Obstetrics & Gynecology
DX: O9A.213 Injury, poisoning and certain other consequences of external causes complicating pregnancy, third trimester (principal); S39.012A Strain of muscle, fascia and tendon of lower back, initial encounter; X58.XXXA Exposure to other specified factors, initial encounter; Z3A.29 29 weeks gestation of pregnancy
CPT/HCPCS: 59025; 81001; 82731; 87086; 87491; 87591; 87661; 87801; 99214

== ENCOUNTER 2021-07-08 09:06 | Emergency (ER) | payer OTHER ==
--- NOTE | 2021-07-08 09:47 | ED Physician Documentation ---
PD HPI HEADACHE - Stated complaint Stated Complaint: ABD PX/LIGHT HEADED - Chief complaint Chief Complaint: General - History obtained from History obtained from: Patient - History of Present Illness Timing - onset: Today Timing - onset during: Rest Timing - duration: Hours Timing - details: Abrupt onset, Still present Pain level max: 10 Pain level now: 10 Location: Front, Right Quality: Throbbing Associated symptoms: Nausea, Vomiting. No: Fever, Stiff neck, Weakness, Numbness, Syncope, Seizure, Eye pain, Vision changes Improved by: Rest, Dark room, Quiet Worsened by: Light Contributing factors: No: Anticoagulated Similar symptoms before: Has not had sx before Recently seen: Not recently seen - Additional information Additional information: Previously well 25-year-old female without a history of migraines has developed a headache throbbing behind the right eye early this morning and this was followed by nausea and vomiting. She continues to have nausea she continues to have a headache that she rates a 10 out of 10 throbbing from behind the right eye. She does acknowledge sensitivity to light she denies sensitivity to noise and she denies any aura prior to the onset of the headache. She does state that she got up at about 5:00 this morning to move her car for her to move his truck out of the way she felt fine at that time. She does not have a family history of migraine. She states that she has otherwise been well she did have urinary tract infection she has finished her antibiotics for this. She was sick with this about 2 weeks ago and she states that she continues to have a smell to her urine. Review of Systems Constitutional: denies: Fever Eyes: reports: Photophobia. denies: Decreased vision Ears: denies: Ear pain Nose: denies: Rhinorrhea / runny nose, Congestion Throat: denies: Sore throat Cardiac: denies: Chest pain / pressure Respiratory: denies: Dyspnea, Cough GI: reports: Nausea, Vomiting. denies: Abdominal Pain, Constipation, Diarrhea : denies: Dysuria, Frequency Skin: denies: Rash Musculoskeletal: denies: Neck pain, Back pain, Extremity pain Neurologic: reports: Headache. denies: Generalized weakness, Focal weakness, Numbness, Difficulty speaking, Syncope, Seizure, Confused, Altered mental status, Head injury, LOC PD PAST MEDICAL HISTORY - Past Medical History Cardiovascular: None Respiratory: None Neuro: None Endocrine/Autoimmune: None GI: None ROOM SERVICE ASSOCIATE: None : None HEENT: None Psych: None Musculoskeletal: None Derm: None - Past Surgical History Past Surgical History: Yes /ROOM SERVICE ASSOCIATE: section - Present Medications Home Medications: Ambulatory Orders Medication Instructions Recorded Confirmed Pnv No.121/Iron/Folic Acid 1 each PO DAILY #90 tablet 07/04/20 07/08/21 [ Multivitamin Tablet] Sertraline HCl 1 tab PO DAILY 07/08/21 07/08/21 - Allergies Allergies/Adverse Reactions: Allergies Allergy/AdvReac Type Severity Reaction Status Date / Time No Known Drug Allergies Allergy Verified 07/08/21 09:18 - Social History Does the pt smoke?: No Smoking Status: Never smoker Does the pt drink ETOH?: No Does the pt have substance abuse?: No - Immunizations Immunizations are current?: Yes - POLST Patient has POLST: No PD ED PE NORMAL - Vitals Vital signs reviewed: Yes (normal ) - General General: Alert and oriented X 3, No acute distress, Well developed/nourished - HEENT HEENT: Atraumatic, PERRL, EOMI - Neck Neck: Supple, no meningeal sign, No bony TTP - Cardiac Cardiac: RRR, No murmur - Respiratory Respiratory: No respiratory distress, Clear bilaterally - Abdomen Abdomen: Normal bowel sounds, Soft, Non tender, Non distended, No organomegaly - Back Back: No CVA TTP, No spinal TTP - Derm Derm: Normal color, Warm and dry, No rash - Extremities Extremities: No deformity, No edema - Neuro Neuro: Alert and oriented X 3, hub inventory specialist 2-12 intact, No motor deficit, No sensory deficit, Normal speech Eye Opening: Spontaneous Motor: Obeys Commands Verbal: Oriented GCS Score: 15 - Psych Psych: Normal mood, Normal affect Results - Vitals Vitals: Vital Signs - 24 hr 07/08/21 07/08/21 09:12 11:02 Temperature 36.0 C L Heart Rate 72 54 L Respiratory 16 16 Rate Blood Pressure 127/81 H 106/59 L O2 Saturation 99 98 Oxygen O2 Source Room air - Labs Labs: Laboratory Tests 07/08/21 10:27 Urine Color YELLOW Urine Clarity CLEAR Urine pH 7.5 Ur Specific [place] 1.020 Urine Protein NEGATIVE Urine Glucose (UA) NEGATIVE Urine Ketones NEGATIVE Urine Occult Blood NEGATIVE Urine Nitrite NEGATIVE Urine Bilirubin NEGATIVE Urine Urobilinogen 0.2 (NORMAL) Ur Leukocyte Esterase TRACE H Urine RBC 0-5 Urine WBC 4-5 Ur Squamous Epith Cells MOD Squamous H Urine Bacteria Moderate H Ur Microscopic Review INDICATED Urine Culture Comments NOT INDICATED Urine HCG, Qual NEGATIVE Procedures - IVC sono (time) 0940 Bedside IVC sono: IVC measures (cm) (1.61), Euvolemia PD MEDICAL DECISION MAKING - ED course Complexity details: reviewed old records, reviewed results, re-evaluated patient, considered differential, d/w patient ED course: Previously well 25-year-old female who is breast-feeding has developed a severe headache and nausea and vomiting with some photophobia all consistent with the possibility of migraine headache. She does not have a history of migraine headache. A urinalysis is obtained was checked and IV is begun and patient is given a migraine cocktail. Departure - Departure Disposition: 01 Home, Self Care Clinical Impression: Migraine Qualifiers: Migraine type: without aura Status migrainosus presence: without status migrainosus Intractability: not intractable Qualified Code(s): G43.009 - Migraine without aura, not intractable, without status migrainosus Condition: Stable Instructions: ED Headache Migraine Follow-Up: [facility] [Provider Group]
[2021-07-08 10:49] LABS: BILIRUBIN,URINE NEGATIVE (NEGATIVE); GLUCOSE, URINE (UA) NEGATIVE (NEGATIVE); KETONES,URINE (UA) NEGATIVE (NEGATIVE); LEUKOCYTE ESTERASE, URINE TRACE (NEGATIVE); NITRITE,URINE NEGATIVE (NEGATIVE); OCCULT BLOOD,URINE NEGATIVE (NEGATIVE); PH,URINE 7.5 PH (5.0-7.5); PROTEIN,URINE NEGATIVE (NEGATIVE); UROBILINOGEN,URINE 0.2 (NORMAL) E.U./dL (NORMAL)
[2021-07-08] MEDS: SODIUM CHLORIDE 0.9% 1,000 ML IV STA (10:50)
[2021-07-08] MEDS: KETOROLAC 30 MG/ML VIAL IVP STA (10:51)
[2021-07-08 10:53] LABS: CLARITY,URINE CLEAR (CLEAR); HCG UR QUAL NEGATIVE
[2021-07-08] MEDS: diphenhydrAMINE INJ 50 MG/ML VIAL IVP STA (10:53)
[2021-07-08] MEDS: DEXAMETHASONE 10 MG/ML VIAL IVP STA (10:54)
[2021-07-08] MEDS: PROCHLORPERAZINE 10 MG/2 ML VIAL IVP STA (10:56)
[2021-07-08 11:04] LABS: RBC,URINE 0-5 /HPF (0-5); SQUAMOUS EPITHELIAL CELL,UR MOD Squamous (<= Few)
[2021-07-08 11:05] LABS: BACTERIA,URINE Moderate /HPF (None Seen)
[2021-07-08 12:06] VITALS: BP 105/99
== END 2021-07-08 12:05 | disposition home or self-care (01) ==
LOC: ED 09:06
DX: G43.009 Migraine without aura, not intractable, without status migrainosus (principal)
CPT/HCPCS: 81001; 81025; 96361; 96374; 96375; 99284; 99285; J1200; 81003; 87086

== ENCOUNTER 2022-07-15 08:00 | Outpatient (CLI) | payer OTHER | END 2022-07-15 23:59 | disposition home or self-care (01) | LOC: LAB.N 08:00 | PROVIDERS: ATTEND Physician Assistant Medical | DX: R10.2 Pelvic and perineal pain (principal) | CPT/HCPCS: 87077; 87086; 87181 ==

== ENCOUNTER 2023-11-13 04:22 | Emergency (ER) | payer OTHER ==
[2023-11-13 04:34] VITALS: BP 143/71; O2SAT 99
[2023-11-13 04:53] LABS: RAPID STREP SCREEN POSITIVE (Negative)
--- NOTE | 2023-11-13 05:02 | ED Physician Documentation ---
PD HPI HEENT - Stated complaint Stated Complaint: FEVER/SORE THROAT - Chief complaint Chief Complaint: Heent - Additional information Additional information: Patient is a 28-year-old female presenting for evaluation of sore throat since last night. Woke up today feeling some chills. Did try Viviane-[place] without any improvement. Denies any known sick contacts. Has a history of strep infections as a child was was to get her tonsils removed but did not. No reported fevers. No cough, vomiting or diarrhea. Review of Systems Constitutional: reports: Chills. denies: Fever Throat: reports: Sore throat Respiratory: denies: Cough GI: denies: Vomiting PD PAST MEDICAL HISTORY - Past Medical History Cardiovascular: None Respiratory: None Neuro: None Endocrine/Autoimmune: None GI: None IMPORT COORDINATOR: None : None HEENT: None Psych: None Musculoskeletal: None Derm: None - Past Surgical History Past Surgical History: Yes /IMPORT COORDINATOR: section - Present Medications Home Medications: Ambulatory Orders Medication Instructions Recorded Confirmed Amoxicillin 500 mg PO BID #20 cap 11/13/23 buPROPion [Wellbutrin Xl] 150 mg PO DAILY 11/13/23 11/13/23 - Allergies Allergies/Adverse Reactions: Allergies Allergy/AdvReac Type Severity Reaction Status Date / Time No Known Drug Allergies Allergy Verified 11/13/23 04:26 - Social History Does the pt smoke?: No Smoking Status: Former smoker Does the pt drink ETOH?: No Does the pt have substance abuse?: No - Immunizations Immunizations are current?: Yes - POLST Patient has POLST: No PD ED PE NORMAL - General General: Alert and oriented X 3, No acute distress, Well developed/nourished - HEENT HEENT: Atraumatic, Moist mucous membranes, Other (Mild tonsillar enlargement bilaterally, no significant exudate, no signs of peritonsillar abscess, uvula is midline, normal speech, no trismus) - Neck Neck: Supple, no meningeal sign - Cardiac Cardiac: RRR - Respiratory Respiratory: No respiratory distress, Clear bilaterally - Derm Derm: Warm and dry - Neuro Neuro: Normal speech Results - Vitals Vitals: Vital Signs - 24 hr 11/13/23 04:26 Temperature 36.8 C Heart Rate 99 Respiratory 16 Rate Blood Pressure 143/71 H O2 Saturation 99 Oxygen O2 Source Room air - Labs Labs: Laboratory Tests 11/13/23 04:32 Group A Strep Rapid POSITIVE H PD Medical Decision Making - ED course Complexity details: reviewed results, d/w patient ED course: Patient with sore throat for 1 day. Vital signs are stable. No signs of deep space infection or airway compromise. No signs of peritonsillar abscess. Rapid strep is positive. Patient started on amoxicillin. Recommended continued use of anti-inflammatories, Hydration and advised on concerning symptoms to return for. Departure - Departure Disposition: 01 Home, Self Care Clinical Impression: Strep pharyngitis Condition: Stable Instructions: ED Strep Pharyngitis Conf Prescriptions: Amoxicillin 500 mg PO BID #20 cap Comments: Your strep test is positive. I have sent an antibiotic prescription to [facility] in [place]. Continue with acetaminophen or ibuprofen as needed for fever and pain. Continue to make sure you stay hydrated. Return to the ER with any worsening. Forms: PCP List
[2023-11-13] MEDS: IBUPROFEN 800 MG TABLET PO STA (05:10)
[2023-11-13] MEDS: AMOXICILLIN 250 MG CAPSULE PO STA (05:10)
== END 2023-11-13 05:15 | disposition home or self-care (01) ==
LOC: ED 04:22
DX: J02.0 Streptococcal pharyngitis (principal)
CPT/HCPCS: 87430; 99283; A9270; 87633